=== PATIENT | male | born 1955 | race Caucasian/White ===

== ENCOUNTER → 2021-09-12 09:03 | Outpatient (REF) | payer OTHER, SELFPAY ==
--- NOTE | 2021-09-12 09:30 | CA_ITS ---
Transthoracic Echocardiogram Patient (Last, First, Middle): Bethany Arango, Gender: Male Date of : 1955 Age: 66 Procedure Date: 09/12/2021 Procedure Type: Transthoracic Echocardiogram Location: OP Height: 170.18 cm Weight: 90.72 kg BSA: 2.02 m2 Heart Rate: bpm BP: 124 / 80 mmHg [employer] Worker: Referring MD: Kiera Huerta MD Symptoms: TYPE 2 DM E11.69, N52.9 MALE ERECTILE DYSFUNCTION Study Quality: Fair ECG Rhythm: Sinus Conclusions: - The left ventricular systolic function is normal. The calculated ejection fraction is 64% by biplane method. - There is mild aortic valve stenosis. Findings Left Ventricle Normal left ventricular cavity size. There is mildly increased left ventricular wall thickness. The left ventricular systolic function is normal. The calculated ejection fraction is 64% by biplane method. There is no evidence of regional wall motion abnormalities. E/E prime ratio is >15, consistent with elevated filling pressures. Evidence suggests grade I (mild) diastolic dysfunction. Right Ventricle Normal right ventricular cavity size and systolic function. Atria Both atria are normal in size. Aortic Valve There is mild calcification of the aortic valve. There is mild aortic valve stenosis. The mean gradient is 11 mmHg. There is no aortic valve regurgitation. Mitral Valve The mitral valve appears normal. There is no mitral valve regurgitation. There is no mitral valve stenosis. Pulmonic Valve The pulmonic valve was not well visualized. Tricuspid Valve Normal tricuspid valve structure. There is trace tricuspid valve regurgitation. The pulmonary artery systolic pressure is normal. Great Vessels The asc aorta is normal in size. Venous The inferior vena cava is normal in size and collapses greater than 50% with inspiration. Pericardium/Pleural There is no evidence of pericardial effusion. Prior Study Comparison No significant change compared to prior study dated: 11/07/2017. Measurements 2D Linear Measurements IVSd: 1.25 0.6-0.9/0.6-1.0 cm LVIDd: 3.95 3.9-5.3/4.2-5.9 cm LVIDd Index: 1.96 2.4-3.2/2.2-3.1 cm/m2 LVIDs: 2.49 2.0-3.6 cm LVPWd: 1.27 0.7-1.1 cm LA Diam: 3.00 2.7-3.8/3.0-4.0 cm LAIDs Index: 1.49 1.5-2.3 cm/m2 LV Mass: 217.58 67-162/88-224 g LV Mass Index: 107.71 43-95/49-115 g/m2 LVOT Diam: 2.20 3.0+(-)1.3 cm 2D Systolic Function EF 4C: 60.00 >55% EF 2C: 67.30 >55% EF BiP: 63.50 >55% Mitral Valve MV Pk E: 0.87 MV PK A: 1.16 MV Decel Time: 147.00 E/A: 0.70 E'Lateral: 5.44 E'Medial: 5.66 E/E' Med: 15.30 E/E' Lat: 15.90 PHT: 43.00 MVA PHT: 5.12 Decel Andrews: 5.90 Aortic Valve AoV Pk Miguel: 2.21 AoV Mn Miguel: 1.54 AoV VTI: 0.43 AoV Pk Grad: 20.00 Aov Mn Grad: 11.00 ULISES Cont.VTI: 2.47 LVOT LVOT Pk Miguel: 1.05 LVOT Mn Miguel: 0.67 LVOT VTI: 0.28 LVOT Pk Grad: 4.00 LVOT Mn Grad: 2.00 LVOT Diam: 2.20 LVOT Area: 3.80 Diastolic Function MV Pk E: 0.87 MV Pk A: 1.16 E/A: 0.70 E'Medial: 5.66 E/E' Med: 15.30 E' Laterial: 5.44 E/E' Lat: 15.90 Right Ventricle TAPSE (mm): 21.00 Tricuspid Valve TR Pk Miguel: 2.09 TR Pk Grad: 17.00 Great Vessels Aorta Sinus of Valsalva: 2.90 2.0-3.5 cm Ao Asc: 3.00 2.1-3.4 cm Pulmonary Valve PV Pk Miguel: 1.19 Peak PV Grad: 6.00 Updated in Other Vendor System with Status of Final Jd Salmon MD electronically signed on 09/14/2021 1:23:37 PM with status of Final
== END ==
LOC: HO.CARD 09:03
PROVIDERS: PCP Internal Medicine; Visit Provider Internal Medicine
DX: E11.69 Type 2 diabetes mellitus with other specified complication (principal); N52.9 Male erectile dysfunction, unspecified
CPT/HCPCS: 93306

== ENCOUNTER 2024-12-07 11:15 | Outpatient (REF) | payer OTHER, SELFPAY ==
[2024-12-07 14:02] LABS: MANUAL DIFF FLAG NO
[2024-12-07 14:08] LABS: Basophils Absolute Auto 0.1 X10*3/uL (0.0-0.2); Basophils Percent Auto 0.8 % (0-2); Eosinophils Absolute Auto 0.2 X10*3/uL (0.0-0.4); Eosinophils Percent Auto 2.8 % (0-4); Hematocrit 37.4 % (42.0-52.0); Hemoglobin 11.3 g/dl (14.0-18.0); Imm Gran Abs Auto 0.02 X10*3/uL (0.00-0.03); Imm Gran Pct Auto 0.3 % (0.0-0.4); Lymphocytes Absolute Auto 2.3 X10*3/uL (1.2-4.9); Lymphocytes Percent Auto 28.8 % (20-40); Mean Corpuscular HGB Conc 30.2 g/dl (31.0-36.0); Mean Corpuscular Hemoglobin 28.8 pg (27.0-33.0); Mean Corpuscular Volume 95.2 fL (80.0-98.0); Mean Platelet Volume 9.2 fL (9.4-12.4); Monocytes Absolute Auto 0.8 X10*3/uL (0.1-1.2); Monocytes Percent Auto 9.6 % (2-11); Neutrophils Absolute Auto 4.5 x10*3/uL (2.0-8.3); Neutrophils Percent Auto 57.7 % (45-73); Platelet Count 389 X10*3/uL (160-400); Red Blood Count 3.93 X10*6/uL (4.60-5.80); White Blood Count 7.9 X10*3/uL (4.8-10.8)
[2024-12-07 14:35] LABS: Alanine Aminotransferase 19 U/L (0-40); Albumin Level 4.2 g/dL (3.5-5.0); Alkaline Phosphatase 72 U/L (39-117); Anion Gap 12 (12-20); Aspartate Amino Transferase 21 U/L (5-37); Bilirubin Total 1.2 mg/dL (0.0-1.0); Blood Urea Nitrogen 17 mg/dL (9-16); Calcium 9.1 mg/dL (8.4-10.2); Carbon Dioxide 28 mmol/L (22-29); Chloride 105 mmol/L (96-108); Cholesterol 108 mg/dL (<200); Estimated Glomerular Filt Rate > 60; Glucose Random 213 mg/dL (60-115); HDL Cholesterol 28 mg/dL (>40); LDL Cholesterol Calculated 55 mg/dL (<100); Potassium 4.1 mmol/L (3.3-5.1); Sodium 141 mmol/L (135-145); Total Protein 7.1 g/dL (6.5-8.0); Triglycerides 127 mg/dL (<150)
[2024-12-07 14:55] LABS: TSH reflex Free T4 1.54 uIU/mL (0.32-4.0)
[2024-12-07 15:05] LABS: Creatinine Urine 108.19 mg/dL; Microalbum/Creatinine Ratio Ur 19.4 ug/mg cr (<30)
[2024-12-08 08:04] LABS: HBc Num1 0.06 S/CO (0.00-0.79); HBsAGNum1 0.59 S/CO (0.00-0.99); Hepatitis A Antibody IgM 0.21 Index (0-0.79); Hepatitis B Core Antibody Nonreactive (Nonreactive); Hepatitis B Surface Antigen Negative (Negative); ~HepC Num1 0.06 S/CO (0.00-0.79); ~Hepatitis A Antibody IgM Nonreactive (Nonreactive); ~Hepatitis B Surface Antibody NONREACTIVE (Nonreactive); ~Hepatitis C Antibody Nonreactive (Nonreactive)
== END 2024-12-07 11:16 | disposition home or self-care (01) ==
LOC: HO.CHCLDS 11:15
PROVIDERS: Visit Provider Internal Medicine
DX: I10 Essential (primary) hypertension (principal); E78.00 Pure hypercholesterolemia, unspecified; E11.65 Type 2 diabetes mellitus with hyperglycemia; Z79.4 Long term (current) use of insulin
CPT/HCPCS: 36415; 80053; 80061; 82043; 82570; 84443; 85025; 86704; 86706; 86709; 86803; 87340

== ENCOUNTER 2024-12-09 08:59 | Outpatient (REF) | payer OTHER, SELFPAY ==
[2024-12-09 11:37] LABS: Immature Retic Fraction 27.2 % (2.3-13.4); Reticulocytes Absolute 0.116 X10*6/uL (0.026-0.095)
[2024-12-09 12:08] LABS: Iron 50 mcg/dL (45-160); Percent Iron Saturation 18 % (15-50); Total Iron Binding Capacity 274 mcg/dL (228-428); Unsaturated Iron Binding 224 ug/dL
[2024-12-09 12:11] LABS: Ferritin 96 ng/mL (20-250)
== END 2024-12-09 09:00 | disposition home or self-care (01) ==
LOC: HO.CHCLDS 08:59
PROVIDERS: Visit Provider Internal Medicine
DX: D64.9 Anemia, unspecified (principal)
CPT/HCPCS: 36415; 82728; 83540; 85045

== ENCOUNTER → 2025-02-15 08:40 | Outpatient (BNV) | payer OTHER, SELFPAY | PROVIDERS: PCP Internal Medicine; Visit Provider Internal Medicine Medical Oncology | DX: D64.9 Anemia, unspecified (principal) | CPT/HCPCS: 99213 ==